=== PATIENT | male | born 1940 | race Two or more races ===

== ENCOUNTER → 2019-08-07 | Emergency (ER) | payer OTHER ==
[~2019-08-07] VITALS: Ht 182.9 cm; Wt 127.0 kg
[2019-08-08 02:52] LABS: Basophils # (auto) 0.1 10 ^3/uL (0-0.2); Eosinophils # (auto) 0.2 10 ^3/uL (0-0.8); Eosinophils % (auto) 1.9 % (0.0-7.0); Hematocrit 47.8 % (41.0-53.0); Hemoglobin 16.1 g/dL (13.5-17.5); Lymphocytes # (auto) 1.6 10 ^3/uL (0.4-5.4); Mean Corpuscular Hemoglobin 30.4 pg (28.0-32.0); Mean Corpuscular Hgb Conc. 33.6 g/dL (32.0-36.0); Mean Corpuscular Volume 90.5 fL (80.0-100.0); Monocytes # (auto) 0.8 10 ^3/uL (0-1.3); Monocytes % (auto) 8.6 % (0.0-12.0); Neutrophils # (auto) 6.4 10 ^3/uL (1.6-8.6); Neutrophils % (auto) 70.5 % (37.0-80.0); Nucleated Red Blood Cells % 0.1 %; Platelet Count (auto) 318 10^3/uL (140-450); Red Blood Cells 5.28 10^6/uL (4.5-5.90); White Blood Cell 9.1 10^3/uL (4.4-10.8)
[2019-08-08 03:15] LABS: Albumin 3.5 g/dL (3.4-5.0); BUN/Creatinine Ratio 24.5; Calcium 8.7 mg/dL (8.5-10.1); Potassium 4.1 mmol/L (3.5-5.1)
[2019-08-08 03:23] LABS: Bilirubin, Total 0.9 mg/dL (0.2-1.0); Total Protein 8.1 g/dL (6.4-8.2)
[2019-08-08 04:45] VITALS: BP 106/70
== END | disposition home or self-care (01) ==
LOC: ER 22:31
DX: K42.9 Umbilical hernia without obstruction or gangrene (principal); K57.92 Diverticulitis of intestine, part unspecified, without perforation or abscess without bleeding; N40.0 Benign prostatic hyperplasia without lower urinary tract symptoms; I89.0 Lymphedema, not elsewhere classified
CPT/HCPCS: 36415; 74176; 80053; 83605; 83690; 83880; 84484; 85025; 93005